=== PATIENT | female | born 1945 | race Asian ===

== ENCOUNTER 2016-06-23 06:40 | Day surgery (SDC) | payer MEDICARE, OTHER ==
[~2016-06-23] VITALS: Ht 154.9 cm; Wt 64.5 kg
[~2016-06-23 06:40] MED LIST: AMLO-511 PO; ATOR20TA86 PO; BESIFLOXACIN HCL 0.6% 5 ML OPHTHALMIC SUSPENSION OD ONE; DICLOFENAC SODIUM 0.1% 2.5 ML OPHTHALMIC SOLUTION OD ONE; METF500T4 PO; RINGERS SOLUTION,LACTATED 500 ML IV ONE
[2016-06-23] MEDS ORDERED: DICLOFENAC SODIUM 0.1% 2.5 ML OPHTHALMIC SOLUTION ONE (06:55)
[2016-06-23] MEDS ORDERED: BESIFLOXACIN HCL 0.6% 5 ML OPHTHALMIC SUSPENSION ONE (06:56)
[2016-06-23] MEDS ORDERED: RINGERS SOLUTION,LACTATED 500 ML IV ONE (06:56)
[2016-06-23 07:41] LABS: GLUCOSE,POINT OF CARE 138 MG/DL (70-110)
[2016-06-23] MEDS ORDERED: MitoMYcin 0.2 MG/VIAL KIT FOR OPHTHALMIC USE OD ONE (07:45)
[2016-06-23] MEDS ORDERED: MIDAZOLAM HCL 2 MG/2 ML VIAL IVP ONE (12:00)
[2016-06-23] MEDS ORDERED: FentaNYL CITRATE-PF 100 MCG/2 ML VIAL IVP ONE (12:00)
[2016-06-23] MEDS ORDERED: LIDOCAINE HCL 2%/EPI 1:200,000/PF 10 ML VIAL IM ONE (17:04)
[2016-06-23] MEDS ORDERED: BUPIVACAINE HCL/PF 0.75% 10 ML VIAL INJ ONE (17:04)
[2016-06-23] MEDS ORDERED: POVIDONE-IODINE 10% 15 ML SOLUTION UD TP ONE (17:04)
[2016-06-23] MEDS ORDERED: TETRACAINE HCL VISCOUS 0.5% 0.6 ML OPHTHALMIC SOLUTION OD ONE (17:04)
== END 2016-06-23 10:10 | disposition home or self-care (01) ==
LOC: SURGERY 06:40
PROVIDERS: ATTEND Specialist
DX: H11.051 Peripheral pterygium, progressive, right eye (principal); E11.39 Type 2 diabetes mellitus with other diabetic ophthalmic complication; I10 Essential (primary) hypertension; M19.90 Unspecified osteoarthritis, unspecified site
CPT/HCPCS: 65426; 82962; 88304; 93005; C1768; J2250; J3010; J7120; J3490